=== PATIENT | female | born 1985 | race Caucasian/White ===

== ENCOUNTER 2018-08-29 16:30 | Emergency (ER) | payer MEDICAID ==
[2018-08-29 16:38] VITALS: BP 126/86
--- NOTE | 2018-08-29 17:20 | EDPHY ---
General Time Seen by Provider: 08/29/18 17:01 Narrative: CLINICAL IMPRESSION: Multiple superficial leg wounds ASSESSMENT/PLAN: 32-year-old type 1 insulin-dependent diabetic who is also homeless and abusing heroin, marijuana and methamphetamine, presents to the emergency department with her spouse who is also homeless for concerns of lesions on her legs for the last several months. 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 They newly relocated to [place] in the last several weeks and are wishing to establish care here. On arrival patient was tachycardic however repeat heart rate by myself is at 90, no reports of fever, chills, severe left leg pain and no clinical signs to suggest necrotizing fasciitis, deep space abscess, osteomyelitis, or compartment syndrome. She has multiple superficial wounds to the anterior left leg as well as the bottom of the left foot. She is also concerned about superficial sores on the arms and back which do not appear secondarily infected to me and may be the result of methamphetamine abuse verses exposure to possible bed bugs or scabies. She was treated with antibiotics, specifically to cover MRSA, as well as permethrin and given referrals to primary care and mental health providers for medication referrals and establishment of care. Wound care discussed, signs and symptoms of infection reviewed, warning signs return to ED sooner outlined and discharge. DIFFERENTIAL DX: Differential includes but not limited to cellulitis, abscess, necrotizing fasciitis, osteomyelitis, acute psychosis, drug abuse, pediculosis CHIEF COMPLAINT: Sores on legs, medication refills HPI: 32-year-old insulin-dependent type 1 diabetic, homeless, presents to the emergency department with her homeless spouse concerned about sores that she has had on her extremities for several months. Patient apparently used to live in this area but has been in [place] with family for the last several years and recently relocated back here. She does not have a primary care doctor. She admits to mental health issues and does not have a mental health provider. She has been off her insulin for many months. She has a history of MRSA as well as osteomyelitis of the right foot resulting in a BKA of the right leg. She denies fevers, chills, myalgias, vomiting. They are currently staying with friends. They have children together and are trying to "fix their lives" so they can be with their kids. She is requesting antibiotics for her leg as well as mental health and primary care follow-up. PAST MEDICAL HISTORY: Insulin-dependent type 1 diabetic, chronic pain, neuropathy, history of MRSA See triage summary and nurse notes for addition applicable history Pertinent Past Surgical History: Right BKA secondary to osteomyelitis of the right foot Family History: Noncontributory Social History: Here with her spouse who is also homeless, complicated social situation, abuses methamphetamine and heroin, denies IV drug abuse, does not currently have access to her children. REVIEW OF SYSTEMS: A full 10 point review of systems was negative except for those mentioned in HPI. PHYSICAL EXAM: General Appearance: Alert, oriented, appropriate, cooperative, NAD, well hydrated, non-toxic appearing, repeat HR by myself is 90, afebrile, no hypoxia. Neck: Supple, nontender, no lymphadenopathy, no midline pain, FROM, no meningismus. Respiratory: There are no retractions, lungs are clear to auscultation. Cardiac: Regular rate and rhythm, no murmurs or gallops. Skin: Superficial wounds to left anterior leg. One wound with mild superficial purulent discharge but no circumferential erythema, warmth, fluctuance, crepitus or suggestion of deep space abscess, necrotizing fasciitis, osteomyelitis or compartment syndrome. Chronic appearing ulcerative wound to the bottom of the left great toe. No reproducible pain to palpation. Distal neurovascular exam intact. MEDICAL DECISION MAKING: Patient was seen independently. Secondary supervising physician at time of evaluation was: Dr. Ho. Diagnosis: Multiple skin wounds. New, requires workup Summary: See Assessment and Plan for summary of ED visit Discussed patient with another provider: Case management Patient Progress: Stable for discharge. - History Smoking Status: Current every day smoker - Objective Vital Signs: Initial Vital Signs Temperature (C) 36.6 C 08/29/18 16:33 Heart Rate 121 H 08/29/18 16:33 Respiratory Rate 16 08/29/18 16:33 Blood Pressure 126/86 H 08/29/18 16:33 O2 Sat (%) 97 08/29/18 16:33 O2 Delivery Mode Room Air Allergies/Adverse Reactions: naproxen Allergy (Intermediate, Verified 01/26/17 10:48) Hives Home Medications: Medication Instructions Recorded Insulin Glargine [Lantus Insulin 100 unit SQ HS 08/17/11 Vial] Humulog 50 units 11/03/12 Gabapentin [Neurontin 300 MG (RX)] 300 mg PO TID #15 cap 03/10/13 CYCLOBENZAPRINE HCL [Flexeril] 10 mg PO HS 03/19/17 Gabapentin [Neurontin] 1,200 mg PO TID 03/19/17 Insulin Aspart [Novolog Flexpen] 45 unit SQ TIDMEAL PRN 03/19/17 Insulin Detemir [Levemir Flextouch] 90 unit SQ BID 03/19/17 Phenylephrine HCl [Sudafed PE] 10 mg PO DAILY 03/19/17 Ranitidine HCl [Zantac] 450 - 600 mg PO DAILY 03/19/17 Doxycycline Hyclate 100 mg PO BID #28 tablet 03/22/17 Buspar (*) 08/29/18 Cephalexin [Keflex] 500 mg PO QID #40 cap 08/29/18 Permethrin 5% [Elimite 5%] 60 gm TP DAILY #1 cream 08/29/18 Permethrin [Nix] 60 ml TP DAILY #1 liquid 08/29/18 Sulfamethox/Tmp 800/160 mg 1 tab PO BID #14 tab 08/29/18 [Bactrim Ds] Departure - Departure Disposition: Home, Routine, Self-Care Clinical Impression: Multiple wounds of skin Condition: Fair Instructions: Acute Wounds (ED) Additional Instructions: DISCHARGE INSTRUCTIONS FROM YOUR DOCTOR Thank you for visiting our emergency department today. You were treated by a physician legal support assistant today and your case was reviewed with our ED Attending physician. Please keep in mind that discharge from the emergency department does not mean that there is nothing wrong - it simply means that we have not identified an emergency condition that requires further evaluation or treatment in the hospital. You should always plan to follow up with primary care for re- evaluation of your condition in the next 2-3 days. If you have been referred to a specialist, please call as soon as possible (today or tomorrow) to schedule your follow up appointment at the appropriate time. YOU WERE GIVEN A PRESCRIPTION FOR ANTIBIOTICS AND TREATMENT FOR POSSIBLE SCABIES/LICE. IT IS VERY IMPORTANT THAT YOU ESTABLISHED CARE WITH A LOCAL PRIMARY CARE DOCTOR TO REFILL YOUR MEDICATIONS. WE ALSO GAVE THE REFERRALS TO MENTAL HEALTH. YOU CAN CALL THE MENTAL HEALTH CLINIC ANY TIME AND THEY HAVE A 24/ WALK-IN CENTER. YOU NEED TO CALL BOTH OF THESE RESOURCES TO SET UP AN APPOINTMENT. PLEASE LET THEM KNOW YOUR IN THE EMERGENCY DEPARTMENT. PLEASE TAKE ALL ANTIBIOTICS DIRECTED. KEEP HER WOUNDS VERY CLEAN. RETURN TO THE EMERGENCY DEPARTMENT FOR ANY SIGNS OF INFECTION, DISCHARGE, SWELLING, FEVERS, CHILLS, VOMITING, OR ANY OTHER CONCERNS. People present with illnesses and injuries in different ways, and it is always possible that we have missed something. You may always return for re-evaluation if symptoms worsen or if they are not improving or if you develop new/different symptoms. Again, thank you for choosing our emergency department. We hope that you feel better. Referrals: NONE *PRIMARY CARE P,. [Primary Care Provider] - As per Instructions [facility],. [Clinic] - 1-2 days without fail [facility],. [Clinic] - 1-2 days without fail Prescriptions: Cephalexin [Keflex] 500 mg PO QID #40 cap Permethrin [Nix] 60 ml TP DAILY #1 liquid Permethrin 5% [Elimite 5%] 60 gm TP DAILY #1 cream Sulfamethox/Tmp 800/160 mg [Bactrim Ds] 1 tab PO BID #14 tab
== END 2018-08-29 17:38 | disposition home or self-care (01) ==
DX: R21 Rash and other nonspecific skin eruption (principal); E10.9 Type 1 diabetes mellitus without complications; Z79.4 Long term (current) use of insulin; Z59.0 Homelessness; Z87.39 Personal history of other diseases of the musculoskeletal system and connective tissue; Z89.511 Acquired absence of right leg below knee